=== PATIENT | male | born 1935 | race Caucasian/White ===

== ENCOUNTER 2016-07-07 10:06 | Day surgery (SDC) | payer OTHER ==
[2016-07-07] MEDS ORDERED: BACITRACIN IRRIGATION/NS 50,000 UNITS/1,000 ML BTL IRR ONE (10:20)
[2016-07-07] MEDS ORDERED: diphenhydrAMINE 25 MG CAP PO ONE (10:20)
[2016-07-07] MEDS ORDERED: ceFAZolin 2 GM/DEXTROSE 100 ML IV ONE (10:20)
[2016-07-07] MEDS ORDERED: NS 1,000 ML IV ONE (10:20)
[2016-07-07] MEDS ORDERED: DIAZEPAM 5 MG TAB PO ONE (10:20)
--- NOTE | 2016-07-07 10:41 | CPEKG ---
Heart Rate: 65 RR Interval: 923 P-R Interval: 156 QRSD Interval: 162 QT Interval: 460 QTC Interval: 479 P Burdette: 0 QRS Burdette: -69 T Wave Burdette: 90 EKG Severity - ABNORMAL ECG - EKG Impression: VENTRICULAR-PACED RHYTHM Electronically Signed By: Raza Mckenzie 07-Jul-2016 12:04:12
[2016-07-07 11:00] LABS: % IMMATURE GRANULYOCYTES 0.6 % (0.0-1.1); ABSOLUTE IMMATURE GRANULOCYTES 0.03 10^3/uL (0.00-0.10); ADD DIFF? NO; ADD MORPH? NO; ADD SCAN? NO; ATYPICAL LYMPHOCYTE FLAG 0 (0-99); FRAGMENT RBC FLAG 0 (0-99); HEMATOCRIT 40.3 % (40.0-51.0); HEMOGLOBIN 13.6 g/dL (13.7-17.5); LEFT SHIFT FLG 0 (0-99); LIPEMIA HEMOLYSIS FLAG 80 (0-99); MEAN CELL HEMOGLOBIN 32.7 pg (27.9-34.1); MEAN CELL HEMOGLOBIN CONCENTR. 33.7 g/dL (32.4-36.7); MEAN CELL VOLUME 96.9 fL (81.5-99.8); MEAN PLATELET VOLUME 8.8 fL (8.7-11.7); PLATELET CLUMPS FLAG 0 (0-99); PLATELET COUNT 228 10^3/uL (150-400); RED BLOOD CELL COUNT 4.16 10^6/uL (4.40-6.38); RED CELL DISTRIBUTION WIDTH 14.1 % (11.5-15.2)
[2016-07-07 11:16] LABS: INR 1.11 (0.83-1.16); PROTIME(PATIENT) 14.2 SEC (12.0-15.0)
[2016-07-07 11:43] LABS: ANION GAP 11 mEq/L (8-16); CALCIUM 9.2 mg/dL (8.5-10.4); CARBON DIOXIDE 25 mEq/l (22-31); CHLORIDE 108 mEq/L (97-110); CREATININE 1.3 mg/dL (0.7-1.3); GLOMERULAR FILTRATION RATE 53; GLUCOSE 108 mg/dL (70-100); POTASSIUM 4.4 mEq/L (3.5-5.2); SODIUM 144 mEq/L (134-144)
[2016-07-07] MEDS ORDERED: BUPIVACAINE 0.5% 30 ML SDV ONE (11:56)
[2016-07-07] MEDS ORDERED: LIDOCAINE 1% 30 ML SDV ONE (11:56)
--- NOTE | 2016-07-07 15:45 | EPPROC ---
Electrophysiology Procedure Note: PROCEDURE PERFORMED: 1. AV Pacemaker generator change INDICATION: Pacemaker generator at SARA Bradycardia PROCEDURE NOTE: Patient presented to the cardiac catheterization laboratory in a fasting, postabsorptive state. Patient requested no sedation be administered. The left infraclavicular area was prepped and draped in the usual sterile fashion. Lidocaine plus bupivacaine was used for local anesthesia. Using a combination of blunt and sharp dissection and electrocautery, the dissection was carried down to the prepectoral fascia and the existing pacemaker pocket was opened. The pacemaker generator was disconnected from the leads and the lead thresholds and impedance were checked. The pacemaker pocket was copiously irrigated with antibiotic solution. The pocket was again inspected for any bleeding. The leads were attached to the pacemaker securely. The pacemaker was inserted into the pocket and secured in place with a nonabsorbable suture. The pacemaker pocket was closed in 3 layers with absorbable monocryl sutures and diana. Appropriate dressing was applied. The patient left the cardiac catheterization laboratory in stable condition. Serial Numbers: 1. Device Medtronic Avdisa MRI [id number] 2. Atrial Lead Medtronic 5076-52 [id number] 3. Ventricular Lead Medtronic 5076-58 [id number] Stimulation Thresholds & Impedance Measurements: 1. Atrial Lead 0.5 V 0.5 ms 479 ohm P 4.2 mV 2. Ventricular Lead 1.1 V 0.5 ms 431 ohm R 9.5 mV Thaddeus Pacing Parameters 1. Pacing mode AAIR - DDDR 2. Lower rate 60 ppm 3. Upper tracking rate 125 ppm Upper sensor rate 125 ppm Patient Problems: Problems Problem Status Onset Bradycardia Acute Chest pain Acute
== END 2016-07-07 13:32 | disposition home or self-care (01) ==
LOC: FCATH 10:06
PROVIDERS: ATTEND Internal Medicine Cardiovascular Disease
PROC: 0JPT0PZ Removal of Cardiac Rhythm Related Device from Trunk Subcutaneous Tissue and Fascia, Open Approach (ICD-10-PCS; principal; 2016-07-07)
PROC: 0JH606Z Insertion of Pacemaker, Dual Chamber into Chest Subcutaneous Tissue and Fascia, Open Approach (ICD-10-PCS; principal; 2016-07-07)
DX: Z45.018 Encounter for adjustment and management of other part of cardiac pacemaker (principal); I49.5 Sick sinus syndrome
CPT/HCPCS: C1785; J0690